=== PATIENT | female | born 1975 | race Caucasian/White ===

== ENCOUNTER 2021-08-02 10:00 | Emergency (ER) | payer OTHER, BC, SELFPAY ==
--- NOTE | ~2021-08-02 | XR_ITS ---
EXAMINATION: XR HAND, LEFT CLINICAL INFORMATION: Laceration COMPARISON: None TECHNIQUE: PA, lateral, and oblique views of the left hand. FINDINGS: Bone alignment is normal. No fracture or dislocation is seen. Joint spaces are normal. There is a dressing overlying the second finger. No radiopaque soft tissue foreign body is seen. XR/XR hand LT min 3V IMPRESSION: Normal left hand.
[2021-08-02 10:21] VITALS: BP 114/71; PULSE 82; RESP 18; TEMP 36.3; O2SAT 100; BMI 20.7
--- NOTE | 2021-08-02 10:25 | PC.NURSE ---
left index finger has clean small lac, bleeding when no pressure applied. pt unable to straighten finger.
[2021-08-02] MEDS: Lidocaine HCl 1 % 20 ML VIAL SUBCUT (12:23)
--- NOTE | 2021-08-02 12:48 | ED_ITS ---
HPI - Wound/Laceration General Chief Complaint: Wound/Laceration Stated Complaint: Finger lac-work inj Time Seen by Provider: 08/02/21 12:08 Source: patient Mode of arrival: ambulatory Limitations: no limitations History of Present Illness HPI narrative: Patient is a 45-year-old female well-appearing who is right-handed dominant. She presents for evaluation after sustaining a laceration to the left 2nd digit from a knife while at work. She was first evaluated at urgent care where her tetanus shot was updated and she was referred to the emergency department given concern for tendon involvement. During exam she reports some mild discomfort and reports inability to fully extend the tip of her finger, though she does have good flexion. she denies any numbness or tingling to the finger. Denies any fevers, chills, chest pain, shortness of breath, or any additional concerns. Related Data Allergies Allergy/AdvReac Type Severity Reaction Status Date / Time No Known Allergies Allergy Verified 08/02/21 10:20 Review of Systems Review of Systems: Constitutional : No Fever, No Chills, Cardiovascular : No Chest Pain, No SOB Respiratory : No Dyspnea Gastrointestinal : No abdominal pain Musculoskeletal : No Joint Swelling Skin : No rash, positive skin laceration Neuro : No Weakness, No Numbness Psych : No SI/HI Yes all other systems are reviewed and are negative PMFSH Past Medical History Attestation statement: The following information was validated with the patient. Source: old records reviewed Physical Exam Vital Signs: Vital Signs: Last Vital Signs Temp 97.3 F 08/02/21 10:21 Pulse 82 08/02/21 10:21 Resp 18 08/02/21 10:21 BP 114/71 08/02/21 10:21 Pulse Ox 100 08/02/21 10:21 BMI result Body Mass Index 20.7 Vital signs have been reviewed as normal and appeared to be correct. Blood pressure normal.? Heart rate normal.? Respiration rate normal. Temperature normal.? Oxygen saturation normal. Appearance: Alert.?Oriented to person, place and time. No acute distress.?Normal affect. ENT: Pharynx normal.?? Neck: Normal inspection.? Neck supple.?? CVS: Heart sounds normal. Normal heart rate and rhythm.? Pulses normal.?? Respiratory: No respiratory distress.? Lung sounds clear to auscultation bilaterally?? Abdomen: Soft and non-tender. Skin: + 1 in laceration to the dorsal aspect of the left 2nd DIP, with small amount of active bleeding. Skin warm and dry.? Normal skin color.? Normal skin turgor.?? Extremities: No lower extremity edema.? Neuro: Moves all extremities spontaneously. Sensation intact bilaterally. No focal neuro deficits. Ambulates with normal steady gait. Course Course Course Narrative: Patient is a 45-year-old female presenting to emergency department for a laceration to the finger, she was evaluated at urgent care and there is concern about tendon involvement. On exam she is unable to fully extend the left 2nd DIP, ability for flexion is intact. X-ray obtained reveals no acute fracture, dislocation, foreign body. She has already had her tetanus vaccine updated. I spoke with Rosy ECHOLS from orthopedics, with advies placing a finger splint, and to follow up outpatient. laceration cleansed with normal saline, using aseptic technique placed 2 5-0 sutures, clean dry dressing applied and finger splint placed over. Discussed plan of care for discharge home and outpatient follow-up with Orthopedics, all questions answered, discussed reasons to return to the emergency department, patient agrees plan of care. [facility] - Wound/Laceration Medical Records Attestation: I reviewed the patient's medical records. Imaging Data left hand x-ray: Radiologist's impression: FINDINGS: Bone alignment is normal. No fracture or dislocation is seen. Joint spaces are normal. There is a dressing overlying the second finger. No radiopaque soft tissue foreign body is seen. XR/XR hand LT min 3V IMPRESSION: Normal left hand. Procedures Laceration left 2nd DIP: Site: hand Side (If applicable): left Size (cm): 2.5 Description: linear Depth: simple, single layer Local Anesthetic: lidocaine 1% Amount of anesthesia used (mL): 2 Pre-repair: wound explored and irrigated extensively Skin layer closed with: nylon Size (cm): 5-0 Number of sutures: 2 Technique: simple, interrupted Discharge Plan Discharge Clinical Impression: Laceration Patient Disposition: Home, Self-Care Additional Instructions: please contact Orthopedics to schedule a follow-up appointment in 1-3 days for evaluation of your finger. Please leave the splint in place until cleared by Orthopedics. We placed 2 sutures to your laceration which should be in removed in 10 days. If you develop any redness, swelling, drainage from the laceration or have significant pain Please return emergency department for re-evaluation or follow up with your primary care provider. You can use Tylenol or ibuprofen as needed for discomfort. your tetanus vaccine was updated at urgent care as you reported Referrals: Rosy Coleman PA-C [Physician Cafeteria Attendant] - 2 days Interventions: ED Discharge Assessment Last Done: 08/02/21 12:59 Discharge Date/Time: 08/02/21 13:01
== END 2021-08-02 13:01 | disposition home or self-care (01) ==
PROVIDERS: Emergency Provider Emergency Medicine
DX: S61.412A Laceration without foreign body of left hand, initial encounter (principal); M79.642 Pain in left hand; W26.0XXA Contact with knife, initial encounter; Y93.9 Activity, unspecified; Y92.9 Unspecified place or not applicable; Y99.0 Civilian activity done for income or pay
CPT/HCPCS: 12001; 73130; 99282; 99284

== ENCOUNTER → 2021-08-03 14:16 | Outpatient (BNVA) | payer OTHER, BC, SELFPAY | PROVIDERS: Visit Provider Physician Assistant | DX: S56.429A Laceration of extensor muscle, fascia and tendon of unspecified finger at forearm level, initial encounter (principal); S61.209A Unspecified open wound of unspecified finger without damage to nail, initial encounter | CPT/HCPCS: 99202 ==

== ENCOUNTER 2021-08-11 06:00 | Day surgery (SDC) | payer OTHER, SELFPAY ==
--- NOTE | 2021-08-10 09:33 | HO.ANESPROP2 ---
Documented by User: Julia Silvestre NP 08/26/21 14:52 HPI - Anesthesia Eval Consult details Narrative: 45yo F for Left Index Extensor Tendon Repair [facility] Active Problems Active Problems: All Active Problems (Updated 08/03/21 @ 15:38 by Jayden Beltran PA-C) Extensor tendon laceration, finger, open wound (Acute) Past Medical History Medical History Hypertension Social History Social History Patient Tobacco Use Status: Never used Tobacco Second Hand Smoke Exposure: No Current occupational status: employed Current occupation: [employer] Allergies Allergy/AdvReac Type Severity Reaction Status Date / Time No Known Allergies Allergy Verified 08/23/21 08:58 Home Medications Medication Instructions Recorded Confirmed Last Taken Type bupropion HCl 75 mg tablet 150 mg PO DAILY 08/03/21 Unknown History fluoxetine 20 mg capsule 20 mg PO DAILY 08/03/21 Unknown History lisinopril 5 mg tablet 5 mg PO DAILY 08/03/21 Unknown History Exam Exam Date and Time: August 10, 2021 09 Assessment and Plan Assessment Anesthesia Assessment: Chart Reviewed Documented by User: Gurjit Damon MD 09/13/21 14:25 [facility] Past Medical History Medical History Hypertension Family History Family history of problems with anesthesia: No Surgical History History of Problems with Anesthesia: No Social History Social History Patient Tobacco Use Status: Never used Tobacco Second Hand Smoke Exposure: No Current occupational status: employed Current occupation: [employer] Allergies Allergy/AdvReac Type Severity Reaction Status Date / Time No Known Allergies Allergy Verified 08/23/21 08:58 Home Medications Medication Instructions Recorded Confirmed Last Taken Type bupropion HCl 75 mg tablet 150 mg PO DAILY 08/03/21 Unknown History fluoxetine 20 mg capsule 20 mg PO DAILY 08/03/21 Unknown History lisinopril 5 mg tablet 5 mg PO DAILY 08/03/21 Unknown History Assessment and Plan Assessment Anesthesia Assessment: Anesthesia Plan Discussed Final Anesthetic Review Family History of Problems with Anesthesia: No History of Problems with Anesthesia: No NPO: Yes ASA Class: II Final Preanesthetic Review: No Changes in Pt Med Stat, Meds/Allgs Chart Reviewed, Consent Obtained/Reviewed and Anes Risks/Benef Reviewed Patient Risk: Low Procedure Risk: Low Anesthetic Plan Anesthetic Plan: GA Disposition: Standard PACU
--- NOTE | ~2021-08-11 | FL_ITS ---
EXAMINATION: XR FLUOROSCOPY WITH IMAGES CLINICAL INFORMATION: Tendon repair COMPARISON: Radiographs left hand 08/02/2021 TECHNIQUE: Fluoroscopy performed by Dr. Kallie Strauss. Fluoroscopy time: 18 seconds DAP: 6934.9 uGycm2 Images: 2 FINDINGS: There is a metallic orthopedic pin extending through the long axis index finger middle and distal phalanges. Hardware is intact. There is no fracture, dislocation, destructive process, or periostitis. FL/FL guidance in OR IMPRESSION: Fluoroscopy for orthopedic procedure.
[2021-08-11 06:12] VITALS: BMI 20.7
[2021-08-11 06:28] LABS: UPreg QC Valid YES; Urine Pregnancy NEGATIVE (NEGATIVE)
[2021-08-11 06:35] VITALS: BP 122/87; PULSE 114; RESP 16; TEMP 37; O2SAT 100
[2021-08-11] MEDS: Lactated Ringers 1,000 ML 100 ML IVCONT (06:35)
--- NOTE | 2021-08-11 07:38 | PC.NURSE ---
Dr. Damon at bedside to perform Left Median of Radial Nerve block proir to procedure. no surgical consent at this time. per Darshana Boogie, food service director time out can performed as no sedation is being given for nerve block. time out performed with Dr. Damon at [id number]
--- NOTE | 2021-08-11 07:54 | MHC.SHP ---
Pre-Procedural Eval Section A Date of Service: 08/11/21 The patient is an INPATIENT: No Changes since office visit: No Cold of Flu in the past 2 weeks, No New Medical Problems, No Changes in Medication and No Patient answered all questions The History & Physical has been completed within 30 days and I have reviewed it.: Yes Section B Chief Complaint: laceration of extensor muscle Allergies: Allergies Allergy/AdvReac Type Severity Reaction Status Date / Time No Known Allergies Allergy Verified 08/02/21 10:20 Plan I have reviewed the history and physical and performed a pertinent physical examination on my patient. No changes have occurred unless specified.
--- NOTE | 2021-08-11 07:55 | W.PM.OPN ---
Operative Note Operative Note Date of Service: 08/11/21 Narrative: Operative Note Narrative: Preop diagnosis: 1. Left index finger extensor tendon laceration over D IP Postop diagnosis: ?1. Left index finger extensor tendon laceration over D IP? 2. left index finger open D IP joint 3. Left index finger suture abscesses Procedure: 1. Left index finger extensor tendon repair 2. Left index finger I and D of D IP joint 3. Left index finger I&D and cultures of suture abscesses Surgeon: Kallie Strauss MD Anesthesia: mac plus regional block Findings: she had 4 small yellow suture abscesses associated with the two dorsally placed sutures. The laceration over the dorsal aspect of the D IP joint lacerated the extensor tendon, and also extended deep into the D IP joint. No gross purulence found in the deeper tissues Implants: 0.045 K-wire x1 Tourniquet time: 0 minutes EBL: 5.0 ml Specimen: cultures of purulent material from suture abscesses Drains: None Complications: None Disposition: Brought to the recovery room in stable condition Plan: I am sending a prescription for Augmentin times 10 days. Follow-up in About 5 days for wound check, and to check cultures Indications: The patient is a 45 year old woman with a left index finger extensor tendon laceration . The risks and benefits of operative treatment, including but not limited to risk of damage to blood vessels, nerves, tendons, infection, recurrence, persistent pain or numbness, incomplete resolution of preoperative symptoms, or need for further surgery were discussed with the patient and they wished to proceed with surgery. Procedure: Once consent was obtained patient was brought back to the operating suite and placed in the operating table in a supine position. A regional block was performed by the anesthesia team. Perioperative antibiotics and anesthesia was administered by the anesthesia team. A tourniquet was applied to the proximal aspect of the left upper extremity and the limb was prepped and draped in a standard surgical fashion. The limb was elevated exsanguinated with Esmarch bandage and the tourniquet inflated to 250 mm of mercury for a total tourniquet time of 0 minutes. she had a regional block and MAC anesthesia and did not tolerate the tourniquet very well so we deflated it. We then placed a small finger tourniquet at the base of the left index finger and this was in place for few where than 30 minutes. The 2 sutures were removed from the dorsal laceration. Again there were for small suture abscesses with yellow creamy purulent material. This material was cultured. The wounds were then copiously irrigated and I also used some Betadine to again further clean the area. I also cut the fingernail short and use some Betadine on the tip of the finger. she had a transverse laceration over the D IP joint of the left index finger that measured approximately 1 cm in length. I then extended this approximately 1 cm proximally and about 8 mm distally on either and. This was done using a 15. Blade. I then carefully dissected down to the level of the extensor tendon. The wound also extended deep and to the dorsal aspect of the D IP joint. No gross purulence was appreciated deep within the wound. Indeed the extensor mechanism was lacerated and somewhat retracted. I&D was then performed on these tissues , and also an I&D of the distal interphalangeal joint was performed using some normal saline. The D IP joint was then brought into extension and a 0.045 K-wire was passed retrograde through the tip of the distal phalanx extending across the D IP joint and to the base of the middle phalanx. I was satisfied with the position of the K-wire and the position of the D IP joint on multiple fluoroscopic images. the extensor tendon was then repaired using some 4-0 Vicryl suture. The skin edges were then reapproximated using some 5 0 Prolene suture material. I did perform a digital block using some 0.5% plain Marcaine. A sterile dressing and a volar finger splint extending from the palmar digital crease distally Was then placed. The patient appears to have tolerated the procedure well and with no complications. All digits were well vascularized at the conclusion of the case.
[2021-08-11 09:02] VITALS: BP 106/72; PULSE 86; RESP 17; TEMP 36.3; O2SAT 100
[2021-08-11 09:17] VITALS: BP 103/72; PULSE 86; RESP 18; TEMP 36.3; O2SAT 100
[2021-08-11 09:32] VITALS: BP 109/68; PULSE 86; RESP 18; TEMP 36.3; O2SAT 100
== END 2021-08-11 10:03 ==
LOC: HO.SSS 06:01
PROVIDERS: Visit Provider Orthopaedic Surgery
PROC: (CPT 26418; principal; 2021-08-11 07:30)
DX: S66.321A Laceration of extensor muscle, fascia and tendon of left index finger at wrist and hand level, initial encounter (principal); S61.201A Unspecified open wound of left index finger without damage to nail, initial encounter; T81.41XA Infection following a procedure, superficial incisional surgical site, initial encounter; L02.512 Cutaneous abscess of left hand; I10 Essential (primary) hypertension; Z79.899 Other long term (current) drug therapy; W26.0XXA Contact with knife, initial encounter; Y93.89 Activity, other specified; Y92.219 Unspecified school as the place of occurrence of the external cause; Y99.0 Civilian activity done for income or pay; Y83.8 Other surgical procedures as the cause of abnormal reaction of the patient, or of later complication, without mention of misadventure at the time of the procedure; Y92.9 Unspecified place or not applicable; Y79.3 Surgical instruments, materials and orthopedic devices (including sutures) associated with adverse incidents
CPT/HCPCS: 26418; 26010; 81025; 87071; 87077; 87186; 87205; J0690; J2250; J3010

== ENCOUNTER → 2021-08-16 08:45 | Outpatient (BNVA) | payer OTHER, SELFPAY | PROVIDERS: Visit Provider Physician Assistant | DX: S66.321D Laceration of extensor muscle, fascia and tendon of left index finger at wrist and hand level, subsequent encounter (principal) | CPT/HCPCS: 99212 ==

== ENCOUNTER → 2021-08-23 08:47 | Outpatient (BNVA) | payer OTHER, SELFPAY | PROVIDERS: Visit Provider Physician Assistant | DX: S56.429D Laceration of extensor muscle, fascia and tendon of unspecified finger at forearm level, subsequent encounter (principal); S61.209D Unspecified open wound of unspecified finger without damage to nail, subsequent encounter | CPT/HCPCS: 99212 ==

== ENCOUNTER 2021-09-20 07:11 | Outpatient (REF) | payer OTHER, SELFPAY ==
--- NOTE | ~2021-09-20 | XR_ITS ---
EXAMINATION: XR HAND, LEFT CLINICAL INFORMATION: Laceration of extensor muscle fascia and tendon COMPARISON: Previous x-ray July 2021 and intraoperative fluoroscopy images July 2021 TECHNIQUE: PA, lateral, and oblique views of the left hand. FINDINGS: There is a K wire or pin seen across the DIP joint of the second finger in the middle and distal phalanx. This appears unchanged from fluoroscopy exam 08/11/2021. There is increasing osteopenia of the second finger. No fracture or dislocation is seen. XR/XR hand LT min 3V IMPRESSION: Stable position orthopedic hardware across the DIP joint of the left second finger.
== END 2021-09-20 07:12 | disposition home or self-care (01) ==
LOC: HO.HOSX 07:11
PROVIDERS: Visit Provider Physician Assistant
DX: S56.422D Laceration of extensor muscle, fascia and tendon of left index finger at forearm level, subsequent encounter (principal)
CPT/HCPCS: 73130; 99212

== ENCOUNTER → 2021-10-17 14:21 | Outpatient (BNVA) | payer OTHER, SELFPAY | PROVIDERS: Visit Provider Physician Assistant | DX: S56.429D Laceration of extensor muscle, fascia and tendon of unspecified finger at forearm level, subsequent encounter (principal); S61.209D Unspecified open wound of unspecified finger without damage to nail, subsequent encounter | CPT/HCPCS: 99212 ==

== ENCOUNTER → 2021-11-16 08:36 | Outpatient (BNVA) | payer OTHER, SELFPAY | PROVIDERS: Visit Provider Orthopaedic Surgery | DX: M25.642 Stiffness of left hand, not elsewhere classified (principal) | CPT/HCPCS: 99212 ==

== ENCOUNTER 2021-11-22 10:00 | Outpatient (RCR) | payer OTHER, SELFPAY ==
--- NOTE | 2021-10-17 08:55 | MHC.OT.EP ---
[address] [phone] Occupational Therapy Plan of Care Date of Evaluation: 10/17/21 Diagnosis: Zone 1 extensor tendon laceration Assessment: 45 yo female presents to OT almost 10 weeks post op left DIP extensor tendon repair w/ k-wire fixation until 6 weeks. She was referred to OT after pin removed 09/20/21, however was not booked for initial evaluation until 10/17/21. On assessment, she is positioning w/ DIP extensor lag at 45 degree, I am able to passively extend digit to 20, but has joint stiffness and flexor tightness. I have placed her in a volar gutter orthosis and spoken with Rosy about my findings. She has follow up in ortho office this afternoon and we will await further recommendations. Frequency and Duration: The patient will be seen TBD Short Term Goals: TBD [facility]ci Goals: TBD Treatment Plan: Currently splinted w/ volar gutter Electronically Signed By: Melissa Boo, OTR/Geovanna CHT Please Sign and return to therapist. Thank you once again for your referral.
--- NOTE | 2021-10-18 07:33 | MHC.OT.OEV ---
[address] [phone] F: [phone] Occupational Therapy Evaluation Diagnosis: Zone 1 extensor tendon laceration Date of Onset: 08/04/21 Date of Surgery: 08/11/21 Attending Provider: Rosy Coleman PA-C Prescribed Treatment: Eval and Treat MD Follow Up Appointment: 10/17/21 History of Current Condition: 45 yo female was trying to slice open a container with a knife, knife slipped and sliced the back of her left index finger. She went to the ED (after being recommended at urgent care) and she was splinted and referred to [facility]. She is now post-op I&D to left dorsal index DIP with extensor tendon repair and K-wire fixation. Her pin was removed 09/20/21 and she was refferred to OT at that time, but is only getting in for initial assessment today. Hand Dominance: Right Prior Level of Function and Occupation Self Care, Employment, Leisure: Works in cafeteria at [employer] Enjoys living Living Situation, Family and/or Social Support: Lives with parents, will be moving to [place] after the school year Current Level of Function and Occupation Self Care, Employment, Leisure: Out of work Sleep: No significant issues Driving: No issues Pain Assessment Pain Score: 1 Pain Location and Description: Low pain occasionally only Aggravating Factors: Holding phone in left hand Alleviating Factors: General avoiding use of left hand, Advil occasionally Skin and Soft Tissue Assessment Comments: Well healed surgical incision over left DIP Nerve assessment Comments: NT Sensory Assessment Comments: Slightly diminished light tough over surgical incision Edema Assessment Comments: Mild edema index Dexterity Assessment Comments: NT AROM(PROM) Strength Digits Index MCP: PIP: DIP: L 45 (20) Long MCP: PIP: DIP: Ring MCP: PIP: DIP: Small MCP: PIP: DIP: Comments: No active DIP extension noted in index, positioning at 45 degrees flexion and able to passively move to 20 w/ end range stiffness Gross Grasp: Lateral Pinch: Two-Point Pinch: Three-Jaw Mukesh: Comments: NT Patient Education Primary Language: Italian Panel Wirer Required: No Current Knowledge: Understands information with skills for self-management Teaching Method: Demonstration Verbal Education Needs Identified on Evaluation: ADL's Disease Information Equipment Use Safety How did patient/family demonstrate learning? Patient demonstrates Patient verbalizes Barriers to Learning: None Readiness for Learning: Accepting Who was educated? Patient Comments: Plan of Care Assessment: 45 yo female presents to OT almost 10 weeks post op left DIP extensor tendon repair w/ k-wire fixation until 6 weeks. She was referred to OT after pin removed 09/20/21., however was not booked for initial evaluation until 10/17/21. On assessment, she is positioning w/ DIP extensor lag at 45 degree, I am able to passively extend digit to 20, but has joint stiffness and flexor tightness. I have placed her in a volar gutter orthosis and spoken with Rosy with my findings. She has follow up in ortho office this afternoon and we will await further recommendation for conservative tx vs surgical revision. Update after 10/17/21 ortho follow-up: Dr Strauss i recommending nighttime splinting and continued OT for the next four weeks to address ROM issues and attempt to regain active extension, we will progress w/ therapy w/ goal of improving strength, range and overall functional use of left hand. STG Duration: 2 week Short Term Goals: TBD LTG Duration: 4 weeks Jail Goals: TBD Frequency and Duration: The patient will be seen 2x/wk for 4 weeks Treatment Plan: Therapeutic Exercise Therapeutic Activity Home Exercise Program Splinting Patient Education Desensitization/Sensory Re-ed Edema Control ADL Training Paraffin Fluidotherapy MHP Cold Packs Joint Mobilization Soft Tissue Mobilization Kinesiotaping Nighttime volar gutter Electronically Signed By: Melissa Boo OTR/L CHT Reviewed/agree with student documentation: N/A Therapist: Please sign and return to therapist, Thank you for your referral.
--- NOTE | 2021-11-15 10:47 | MHC.OT.OP ---
[address] [phone] F: [phone] Occupational Therapy Progress Note Diagnosis: Zone 1 extensor tendon laceration Date of Surgery: 08/11/21 Date of Evaluation: 10/17/21 Treatments to Date: 6 Subjective: I wear my splint every night, I've been working on my exercises Pain Score: 1 Pain Location: low pain w/ DIP ext stretch Objective Measures: L D2 DIP 15 degree ext lag (passive to 0) - (8 degrees after tx) MP 96 PIP flex 70 (100 after tx) DIP flex 30 (45 after tx) Index flex 1.5 cm tip-palm Status: Progressing Assessment: Radha is now about 14 weeks post op left DIP extensor tendon repair w/ k-wire fixation (removed a t 6 weeks). Short term goals met and she has been doing well w/ nighttime stax splint. Today she comes in today w/ 15 degree lag after removing night splint and completing set of home exercises prior to therapy. She has good gains in MP/PIP and DIP flexion from previous OT session as OT continues to reinforce home exercise program with goal of full tip-palm flexion. Short Term Goals: Ind w/ nighttime orthosis wear (met) Pt to complete active DIP ext to 15 (met) Pt to demo index tip-palm <2 cm (met) Ind w/ scar management (met) Ob Nurse Goals: Full active index tip-prox palmar crease Pt to demo good use of index w/ bimanual tasks Pt to maintain active index ext <10 degrees Frequency and Duration: The patient will be seen 2x/wk for 3 weeks Treatment Plan: Therapeutic Exercise Therapeutic Activity Home Exercise Program Splinting Patient Education Edema Control ADL Training Ultrasound Paraffin Fluidotherapy MHP Cold Packs Joint Mobilization Soft Tissue Mobilization Kinesiotaping Nighttime volar gutter Electronically Signed By: Melissa Boo OTR/Geovanna CHT Reviewed/agree with student documentation: N/A Therapist:
--- NOTE | 2021-12-13 13:32 | MHC.OT.DC ---
[address] [phone] F: [phone] Occupational Therapy Discharge Note Provider: Rosy Coleman PA-C Diagnosis: Zone 1 extensor tendon laceration Date of Surgery: 08/11/21 Date of Evaluation: 10/17/21 Date of Discharge: 12/13/21 Treatments to Date: 7 Cancellations to Date: 3 No Shows to Date: 3 Discharge Status: Independent with HEP Visit Non-compliance Discharge Summary: Radha has been seen in OT for zone one extensor tendon repair, she has been progressing fairly well w/ improved flexion, but cont'd to have extension lag and unable to make full active tip-palm permastone applicator without significant warm up and stretch. She has not attended her last several appointments, although she is independent with home program and has good understanding of need for exercise and activity, she has needed cues and encouragement throughout treatment. We will be discharging from services at this time due to visit non-compliance policy. Electronically Signed By: Melissa Boo OTR/Geovanna CHT Reviewed/agree with student documentation: N/A Therapist: Please Sign and return to therapist, thank you for your referral.
== END 2021-12-13 13:33 | disposition home or self-care (01) ==
LOC: HO.OT 10:00
PROVIDERS: Visit Provider Physician Assistant
DX: S61.211D Laceration without foreign body of left index finger without damage to nail, subsequent encounter (principal)
CPT/HCPCS: 29130; 97110; 97140; 97165; 97760